=== PATIENT | male | born 1980 | race Caucasian/White ===

== ENCOUNTER 2018-12-05 08:23 | Emergency (ER) | payer MEDICAID ==
[2018-12-05] MEDS ORDERED: LORazepam 2 MG/ML INJ IVP ONE (08:29)
--- NOTE | 2018-12-05 08:51 | EDPHY ---
HPI/HX/ROS/PE/MDM Narrative: CHIEF COMPLAINT: Altered mental status HPI: The patient is a 38-year-old male with a history of polysubstance abuse who was brought to the emergency department by [facility] the [facility]. The patient was previously arrested for a non violent crime and while in [facility] stated that he was detoxing from heroin and has also used meth recently. The nurse in [facility] found the patient to use very agitated tachycardic so he was sent to the ER for further evaluation. The patient was agitated EN route and received Versed and ketamine so history is somewhat difficult to obtain from this patient. REVIEW OF SYSTEMS: Unable to obtain secondary to altered mental status. PMH: History of polysubstance abuse. SOCIAL HISTORY: Homeless, history of polysubstance abuse. PHYSICAL EXAM: General:Patient is arousable but agitated and sedated. ENT:Eyes are normal to inspection. ENT inspection normal. Neck: Normal inspection. Full range of motion. Respiratory:No respiratory distress. Breath sounds normal bilaterally. Cardiovascular: Tachycardic rate. Strong peripheral pulses. Normal cap refill. Abdomen:The abdomen is nontender to palpation. There are no peritoneal signs. There are normal bowel sounds. Back: Normal to inspection. No tenderness to palpation. Skin: Stigmata of IV drug abuse noted. Extremities: Normal appearance. Full range of motion. Neuro: No focal deficits. (Rajesh Meléndez) 1500: Patient is signed out to me at change of shift. The patient is awaiting metabolize a potts of his methamphetamine. When I evaluated the patient he was lying comfortably in bed. He was not agitated. 1700: The patient was rechecked and still slightly unstable. He will be further observed. (Stefany Lyon) ED Course: Patient was treated with IV fluids and 1mg of IV Ativan. On reevaluation at 1130, patient is sleeping comfortably. VS normal. On reevaluation at 1350, patient walking with assistance. Sobering appropriately. Patient signed out to Sonali. (Rajesh Meléndez) - Data Points Laboratory Results: Laboratory Results 12/05/18 08:59 12/05/18 08:59 12/05/18 12/05/18 08:59 08:59 WBC 11.36 10^3/uL H 10^3/uL (3.80-9.50) RBC 5.05 10^6/uL 10^6/uL (4.40-6.38) Hgb 14.0 g/dL g/dL (13.7-17.5) Hct 42.3 % % (40.0-51.0) MCV 83.8 fL fL (81.5-99.8) MCH 27.7 pg L pg (27.9-34.1) MCHC 33.1 g/dL g/dL (32.4-36.7) RDW 13.1 % % (11.5-15.2) Plt Count 465 10^3/uL H 10^3/uL (150-400) MPV 8.6 fL L fL (8.7-11.7) Neut % (Auto) 60.0 % % (39.3-74.2) Lymph % (Auto) 29.0 % % (15.0-45.0) [place] % (Auto) 7.5 % % (4.5-13.0) Eos % (Auto) 2.4 % % (0.6-7.6) Baso % (Auto) 0.7 % % (0.3-1.7) Nucleat RBC Rel Count 0.0 % % (0.0-0.2) Absolute Neuts (auto) 6.83 10^3/uL H 10^3/uL (1.70-6.50) Absolute Lymphs (auto) 3.29 10^3/uL H 10^3/uL (1.00-3.00) Absolute Monos (auto) 0.85 10^3/uL H 10^3/uL (0.30-0.80) Absolute Eos (auto) 0.27 10^3/uL 10^3/uL (0.03-0.40) Absolute Basos (auto) 0.08 10^3/uL 10^3/uL (0.02-0.10) Absolute Nucleated RBC 0.00 10^3/uL 10^3/uL (0-0.01) Immature Gran % 0.4 % % (0.0-1.1) Immature Gran # 0.04 10^3/uL 10^3/uL (0.00-0.10) Sodium 140 mEq/L mEq/L (135-145) Potassium 4.5 mEq/L mEq/L (3.5-5.2) Chloride 106 mEq/L mEq/L (97-110) Carbon Dioxide 23 mEq/l mEq/l (22-31) Anion Gap 11 mEq/L mEq/L (6-14) BUN 20 mg/dL mg/dL (7-23) Creatinine 1.0 mg/dL mg/dL (0.7-1.3) Estimated GFR > 60 Glucose 110 mg/dL H mg/dL (70-100) Calcium 9.2 mg/dL mg/dL (8.5-10.4) Medications Given: Discontinued Medications Lorazepam (Ativan Injection) 1 mg IVP EDNOW ONE Stop: 12/05/18 08:30 Last Admin: 12/05/18 08:57 Dose: 1 mg General Time Seen by Provider: 12/05/18 08:26 Initial Vital Signs: Initial Vital Signs Temperature (C) 36.6 C 12/05/18 08:29 Heart Rate 110 H 12/05/18 08:29 Respiratory Rate 16 12/05/18 08:29 Blood Pressure 193/100 H 12/05/18 08:29 O2 Sat (%) 91 L 12/05/18 08:29 O2 Delivery Mode Room Air O2 (L/minute) 2 Allergies/Adverse Reactions: No Known Allergies Allergy (Unverified 07/10/09 01:50) Home Medications: Medication Instructions Recorded Albuterol Mdi 07/10/09 Departure - Departure Disposition: Home, Routine, Self-Care Clinical Impression: Polysubstance abuse Condition: Good Instructions: Polysubstance Abuse (ED) Additional Instructions: Patient is medically clear for [facility]. Referrals: Patient,NotPresent [Unknown] - As per Instructions
[2018-12-05 09:02] LABS: PLATELET COUNT 465 10^3/uL (150-400)
[2018-12-05 20:42] VITALS: BP 155/87
== END 2018-12-05 21:39 | disposition home or self-care (01) ==
LOC: EDUNIT#
DX: R41.82 Altered mental status, unspecified (principal); F11.10 Opioid abuse, uncomplicated; Z59.0 Homelessness
CPT/HCPCS: 96374; J2060